=== PATIENT | female | born 1955 | race Two or more races ===

== ENCOUNTER 2024-09-29 20:10 | Emergency (ER) | payer OTHER, MEDICAID ==
[~2024-09-29] VITALS: Ht 152.4 cm; Wt 57.8 kg
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
[2024-09-29] MEDS: FAMOTIDINE 20 MG TAB PO ONE (21:30)
[2024-09-29] MEDS: IBUPROFEN 600 MG TAB PO ONE (21:30)
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
[2024-09-29 22:30] VITALS: BP 145/60; PULSE 63; RESP 19; TEMP 98.3
[2024-09-29 22:55] VITALS: O2SAT 98
== END 2024-09-29 22:47 | disposition home or self-care (01) ==
LOC: ER 20:10
DX: S13.4XXA Sprain of ligaments of cervical spine, initial encounter (principal); S29.012A Strain of muscle and tendon of back wall of thorax, initial encounter; M19.90 Unspecified osteoarthritis, unspecified site; V89.2XXA Person injured in unspecified motor-vehicle accident, traffic, initial encounter; Y93.I9 Activity, other involving external motion; Y92.488 Other paved roadways as the place of occurrence of the external cause; Y99.8 Other external cause status
CPT/HCPCS: 72040; 72070